=== PATIENT | male | born 1975 | race African-American/Black ===

== ENCOUNTER 2024-11-06 09:58 | Emergency (ER) | payer OTHER ==
[~2024-11-06] VITALS: Ht 165.1 cm; Wt 79.0 kg
[2024-11-06 10:08] VITALS: O2SAT 100
[2024-11-06] MEDS ORDERED: LIDOCAINE 5% PATCH TOP SCH (10:15)
[2024-11-06] MEDS: CYCLOBENZAPRINE 10MG TABLET PO ONE (10:19)
[2024-11-06] MEDS: KETOROLAC 15MG/ML VIAL IM ONE (10:20)
[2024-11-06] MEDS: LIDOCAINE 5% PATCH TOP NR (10:22)
[2024-11-06] MEDS ORDERED: P20 MT (11:05)
[2024-11-06] MEDS ORDERED: IBUP-2029 MT (11:05)
[2024-11-06] MEDS ORDERED: LIDO700A30 TP (11:05)
[2024-11-06] MEDS ORDERED: METH-653 MT (11:05)
[2024-11-06 11:48] VITALS: BP 137/80; PULSE 76; RESP 14; TEMP 36.8; O2SAT 100
== END 2024-11-06 11:54 | disposition home or self-care (01) ==
LOC: ER 09:58
DX: M62.838 Other muscle spasm (principal); M54.41 Lumbago with sciatica, right side; I10 Essential (primary) hypertension; G43.909 Migraine, unspecified, not intractable, without status migrainosus; Z98.890 Other specified postprocedural states
CPT/HCPCS: 99283; 96372; J1885